=== PATIENT | male | born 1980 | race American Indian/Alaskan Native ===

== ENCOUNTER 2016-12-24 16:17 | Emergency (ER) | payer MEDICAID, OTHER ==
[2016-12-24 16:58] VITALS: TEMP 99.6; O2SAT 100
--- NOTE | 2016-12-24 18:03 | ED PDOC ---
HPI: Male Pain Time Seen by Provider: 12/24/16 17:43 Chief Complaint (Nursing): Groin Pain Chief Complaint (Provider): Groin rash, and swelling History Per: Patient History/Exam Limitations: no limitations Onset/Duration Of Symptoms: Days (x2 weeks) Current Symptoms Are (Timing): Still Present Pain Scale Rating Of: 5 Associated Symptoms: Nausea, Other (dizzy and lightheadedness). denies: Urinary Symptoms Additional Complaint(s): David Ott is a 36 year old male, with a past medical history of HIV, who presents to the emergency department complaining of groin swelling and itchy rash associated with nausea onset 2 weeks ago. He reports feeling lightheaded and dizzy when he is in motion and also swollen lymph nodes in the groin area. Patient states he was diagnosed with HIV 3 years ago but due to insurance problems and general wellness he decided to stop taking his medications. He states the last time he had his blood tested was approximately 2 years ago. Last time patient was sexually active was 3 weeks ago. He denies any dysuria, fever, or chills. No further medical complaints. PMD: Aime Crespo Past Medical History Reviewed: Historical Data, Nursing Documentation, Vital Signs Vital Signs: Last Vital Signs Temp 99.6 F 12/24/16 16:55 Pulse 121 H 12/24/16 16:55 Resp 16 12/24/16 16:55 BP 113/61 12/24/16 16:55 Pulse Ox 100 12/24/16 16:55 - Medical History PMH: HIV - Surgical History Surgical History: No Surg Hx - Family History Family History: States: Unknown Family Hx - Home Medications Home Medications: Ambulatory Orders Medication Instructions Recorded Clotrimazole 1% Cream [Lotrimin 1%] 1 dose TP BID #1 cre 12/24/16 - Allergies Allergies/Adverse Reactions: Allergies Allergy/AdvReac Type Severity Reaction Status Date / Time No Known Allergies Allergy Verified 12/24/16 16:56 Review of Systems ROS Statement: Except As Marked, All Systems Reviewed And Found Negative Constitutional: Negative for: Fever, Chills Cardiovascular: Positive for: Light Headedness Gastrointestinal: Positive for: Nausea Genitourinary Male: Positive for: Rash (itchy), Other (swollen groin ). Negative for: Dysuria Neurological: Positive for: Dizziness Physical Exam - Reviewed Nursing Documentation Reviewed: Yes Vital Signs Reviewed: Yes - Physical Exam Appears: Positive for: Well, Non-toxic, No Acute Distress Head Exam: Positive for: ATRAUMATIC, NORMAL INSPECTION, NORMOCEPHALIC Skin: Positive for: Normal Color, Warm, Dry, Rash (dry and hypopigmented area on bilateral scrotum) Eye Exam: Positive for: EOMI, Normal appearance, PERRL Neck: Positive for: Normal, Painless ROM, Supple Respiratory: Positive for: Normal Breath Sounds. Negative for: Respiratory Distress Gastrointestinal/Abdominal: Positive for: Normal Exam, Bowel Sounds, Soft. Negative for: Tenderness Male Genital Exam: Positive for: other (superficial ulceration. No vesicles). Negative for: inguinal tenderness, lesions (penile), scrotum tenderness (R), scrotum tenderness (L) Back: Positive for: Normal Inspection (No midline tenderness). Negative for: L CVA Tenderness, R CVA Tenderness Extremity: Positive for: Normal ROM. Negative for: Pedal Edema, Deformity, Swelling Lymphatic: Positive for: Adenopathy (left inguinal adenopathy. ) Neurologic/Psych: Positive for: Alert, Oriented - ECG O2 Sat by Pulse Oximetry: 100 (RA) Pulse Ox Interpretation: Normal Medical Decision Making Medical Decision Making: Initial Impression: tinea cruris Initial Plan: --Rapid Plasma Reagin --reevaluation Scribe Attestation: Documented by Donnell Flanagan, acting as a scribe for Chrystal Remy MD Provider Scribe Attestation: All medical record entries made by the Scribe were at my direction and personally dictated by me. I have reviewed the chart and agree that the record accurately reflects my personal performance of the history, physical exam, medical decision making, and the department course for this patient. I have also personally directed, reviewed, and agree with the discharge instructions and disposition. Disposition - Clinical Impression Clinical Impression: Tinea cruris - Disposition Referrals: Aime Crespo MD [Staff Provider] - Condition: STABLE Prescriptions: Clotrimazole 1% Cream [Lotrimin 1%] 1 dose TP BID #1 cre Instructions: Jock Itch (ED) Forms: Slacker (Kiswahili)
[2016-12-24 18:22] VITALS: BP 108/68; PULSE 98; RESP 18
[2016-12-24 22:30] LABS: RAPID PLASMA REAGIN REACTIVE (NONREACTIVE)
== END 2016-12-24 19:33 | disposition home or self-care (01) ==
LOC: H.ER 16:17
DX: B35.6 Tinea cruris (principal); B20 Human immunodeficiency virus [HIV] disease; R10.9 Unspecified abdominal pain